=== PATIENT | female | born 2000 | race Caucasian/White ===

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

== ENCOUNTER 2021-09-06 19:14 | Emergency (ER) | payer OTHER, SELFPAY ==
[2021-09-06 19:17] VITALS: BP 115/72; PULSE 74; RESP 18; TEMP 37; O2SAT 100; BMI 20.1
[2021-09-06 20:19] LABS: Urine Appearance Hazy (CLEAR); Urine Color Yellow (Yellow)
[2021-09-06 20:20] LABS: Bilirubin Urine 1+ (Negative); Blood Urine Neg (Negative); Glucose Urine UA Norm (Normal); Ketones Urine Negative (Negative); Nitrate Urine Negative (Negative); Protein Urine Trace (Negative); Specific Gravity, Urine 1.015 (1.005-1.030); Urobilinogen Urine 1 mg/dL (Negative); pH Urine 6.5 (5-7)
[2021-09-06 20:21] LABS: Add Urine Culture? Yes; Add Urine Microscopic? YES; Bacteria Urine 2+ /hpf; Leukocyte Esterase Urine Negative (Negative); Mucus Urine 2+ /hpf; RBC Urine 0-4 /hpf (0-2)
== END 2021-09-06 20:22 | disposition left against medical advice (07) ==
LOC: ER 19:23
PROVIDERS: Emergency Medicine; PCP Family Medicine
DX: Z53.21 Procedure and treatment not carried out due to patient leaving prior to being seen by health care provider (principal)
CPT/HCPCS: 81001; 87077; 87086; 87186

== ENCOUNTER → 2022-10-12 13:03 | Outpatient (BNVA) | payer OTHER, SELFPAY | PROVIDERS: PCP Family Medicine; Visit Provider Family Medicine | DX: R00.0 Tachycardia, unspecified (principal); R53.81 Other malaise; R53.83 Other fatigue; Z51.81 Encounter for therapeutic drug level monitoring | CPT/HCPCS: 85025; 85379 ==

== ENCOUNTER → 2022-10-30 15:28 | Outpatient (BNVA) | payer OTHER, SELFPAY | PROVIDERS: PCP Family Medicine; Visit Provider Family Medicine | DX: Z51.81 Encounter for therapeutic drug level monitoring (principal); R00.0 Tachycardia, unspecified; R53.81 Other malaise; R53.83 Other fatigue | CPT/HCPCS: 80053; 84439; 84443; 86141 ==

== ENCOUNTER → 2022-11-14 11:58 | Outpatient (BNVA) | payer OTHER, SELFPAY | PROVIDERS: PCP Family Medicine; Visit Provider Family Medicine | DX: R53.81 Other malaise (principal); R53.83 Other fatigue; R74.8 Abnormal levels of other serum enzymes; L08.9 Local infection of the skin and subcutaneous tissue, unspecified; B95.62 Methicillin resistant Staphylococcus aureus infection as the cause of diseases classified elsewhere | CPT/HCPCS: 80074; 86664; 86665 ==

== ENCOUNTER → 2023-07-05 10:59 | Outpatient (BNVA) | payer OTHER, SELFPAY | PROVIDERS: PCP Family Medicine; Visit Provider Family Medicine | DX: R59.1 Generalized enlarged lymph nodes (principal); J02.9 Acute pharyngitis, unspecified; Z51.81 Encounter for therapeutic drug level monitoring; R53.81 Other malaise; R53.83 Other fatigue | CPT/HCPCS: 80053; 85025; 85651; 86141; 86664; 86665 ==

== ENCOUNTER 2023-07-27 06:39 | Outpatient (CLI) | payer OTHER, SELFPAY ==
[2023-07-27] MEDS: iohexol 350 mg/mL 500 mL Btl (per mL) IV (06:54)
--- NOTE | 2023-07-27 07:00 | CT_ITS ---
WS: [id number] CT NECK TECHNIQUE: Contrast-enhanced CT of the neck with coronal and sagittal reformatted images. CLINICAL INFORMATION: Enlarging lymph nodes COMPARISON: None. DLP: 141.[address] scans at [facility] use at least one of these dose optimization techniques: automated e xposure control; mA and/or kV adjustment per patient size (includes targeted exams where dose is matc hed to clinical indication); or iterative reconstruction. FINDINGS: Paranasal sinuses are well aerated. Mastoid air cells are well aerated. Normal posterior nasopharynx. Normal parapharyngeal fat. Small retention cyst RIGHT maxillary sinus measuring 7 mm. Lung apices are well aerated. Normal parotid glands. Normal submandibular glands. No evidence of supr aglottic or glottic mass. A few tiny low-attenuation nodules in the thyroid gland. No cervical lympha denopathy. Straightening with reversal normal cervical lordosis. IMPRESSION: 1. Normal salivary glands. 2. No evidence of supraglottic or glottic mass. 3. No cervical lymphadenopathy. Few prominent cervical lymph nodes not pathologically enlarged likel y reactive. 4. Straightening with reversal of the normal cervical lordosis. 5. A few tiny low-attenuation thyroid nodules. 6. No other suspicious findings.
== END 2023-07-27 06:40 | disposition home or self-care (01) ==
LOC: RAD 06:43
PROVIDERS: PCP Family Medicine; Visit Provider Family Medicine
DX: R59.1 Generalized enlarged lymph nodes (principal); R61 Generalized hyperhidrosis
CPT/HCPCS: 70491; Q9967

== ENCOUNTER → 2023-08-10 08:37 | Outpatient (BNVA) | payer OTHER, SELFPAY | PROVIDERS: PCP Family Medicine; Visit Provider Family Medicine | DX: E04.1 Nontoxic single thyroid nodule (principal); E03.9 Hypothyroidism, unspecified | CPT/HCPCS: 84439; 84443; 84481 ==

== ENCOUNTER → 2023-11-29 12:43 | Outpatient (BNVA) | payer OTHER, SELFPAY | PROVIDERS: PCP Family Medicine; Visit Provider Family Medicine | DX: J02.9 Acute pharyngitis, unspecified (principal) | CPT/HCPCS: 87070 ==

== ENCOUNTER → 2024-03-13 12:05 | Outpatient (BNVA) | payer OTHER, SELFPAY | PROVIDERS: PCP Family Medicine; Visit Provider Clinical Nurse Specialist Adult Health | DX: R10.84 Generalized abdominal pain (principal); R10.33 Periumbilical pain | CPT/HCPCS: 80053; 83690 ==

== ENCOUNTER 2024-03-26 07:52 | Outpatient (CLI) | payer OTHER, SELFPAY ==
--- NOTE | 2024-03-26 08:00 | NM_ITS ---
WS: [id number] NUCLEAR MEDICINE HIDA SCAN CLINICAL INFORMATION: post prandial abdominal pain TECHNIQUE: Following intravenous administration of 6.8 mCi of technetium 99m mebrofenin, images of th e abdomen were obtained over the course of 60 minutes. Next, gallbladder ejection fraction was determ ined by obtaining preprandial and one-hour postprandial images of the gallbladder following oral belinda stion of Ensure. COMPARISON: None. FINDINGS: Hepatomegaly. Enlarged RIGHT hepatic lobe. Normal hepatic uptake at 5 minutes. Normal hepatic excreti on. Gallbladder is visualized by 20 minutes. No evidence of acute cholecystitis. Normal common bile d uct and small bowel activity. Gallbladder ejection fraction 92% within normal limits. No evidence of chronic cholecystitis. NM/NM hepatobiliary w phar* [id number] IMPRESSION: 1. No evidence of acute or chronic cholecystitis. 2. Gallbladder ejection fraction 92% within normal limits. 3. Hepatomegaly.
== END 2024-03-26 07:53 | disposition home or self-care (01) ==
PROVIDERS: PCP Family Medicine; Visit Provider Clinical Nurse Specialist Adult Health
DX: R10.33 Periumbilical pain (principal); R16.0 Hepatomegaly, not elsewhere classified
CPT/HCPCS: 78227; A9537

== ENCOUNTER 2024-04-03 16:42 | Outpatient (CLI) | payer OTHER, SELFPAY ==
--- NOTE | 2024-04-03 17:00 | CTR_ITS ---
PROCEDURE INFORMATION: Exam: CT Abdomen And Pelvis With Contrast Exam date and time: 04/03/2024 5:15 PM Age: 24 years old Clinical indication: Abdominal pain; Generalized; Patient HX: Elevated liver enzymes, more frequent loose stools, bloating; Additional info: Abdominal pain, iv contrast only TECHNIQUE: Imaging protocol: Computed tomography of the abdomen and pelvis with contrast. Radiation optimization: All CT scans at this facility use at least one of these dose optimization techniques: automated exposure control; mA and/or kV adjustment per patient size (includes targeted exams where dose is matched to clinical indication); or iterative reconstruction. Contrast material: OMNI 350; Contrast volume: 100 ml; Contrast route: INTRAVENOUS (IV); COMPARISON: NM hepatobiliary w phar* [id number] 03/26/2024 8:00 AM RADIATION DOSE METRICS: Total DLP (mGy-cm): 316.5 FINDINGS: Liver: The liver is enlarged. No focal liver masses are seen. 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 No calcified stones. No ductal dilation. Pancreas: Normal. No ductal dilation. Spleen: Normal. No splenomegaly. Adrenal glands: Normal. No mass. Kidneys and ureters: Normal. No hydronephrosis. Stomach and bowel: Unremarkable. No obstruction. No mucosal thickening. Appendix: No evidence of appendicitis. Intraperitoneal space: Unremarkable. No free air. No significant fluid collection. Vasculature: See Liver finding. Lymph nodes: Unremarkable. No enlarged lymph nodes. Urinary bladder: Unremarkable as visualized. Reproductive: There is an heterogeneous area of decreased attenuation involving the anterior uterine myometrium which measures 2.5 cm. Bones/joints: Unremarkable. No acute fracture. Soft tissues: Unremarkable. CT/CT abdomen pelvis w con* [id number] IMPRESSION: 1. No acute abnormality 2. Heterogeneous lesion within the anterior uterine myometrium. This could reflect a uterine fibroid however other etiologies including scar are not excluded. Follow-up nonemergent pelvic ultrasound could be obtained for further evaluation. 3. 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
[2024-04-03] MEDS: iohexol 350 mg/mL 500 mL Btl (per mL) IV (17:28)
== END 2024-04-03 16:43 | disposition home or self-care (01) ==
LOC: RAD 16:43
PROVIDERS: PCP Family Medicine; Visit Provider Clinical Nurse Specialist Adult Health
DX: R10.9 Unspecified abdominal pain (principal); R16.0 Hepatomegaly, not elsewhere classified; N85.8 Other specified noninflammatory disorders of uterus
CPT/HCPCS: 74177; Q9967

== ENCOUNTER → 2024-04-29 11:32 | Outpatient (BNVA) | payer OTHER, SELFPAY | PROVIDERS: PCP Family Medicine; Visit Provider Clinical Nurse Specialist Adult Health | DX: R30.0 Dysuria (principal); R35.0 Frequency of micturition; R03.0 Elevated blood-pressure reading, without diagnosis of hypertension | CPT/HCPCS: 81000; 87086 ==

== ENCOUNTER → 2025-08-17 09:58 | Outpatient (BNVA) | payer OTHER, SELFPAY | PROVIDERS: PCP Family Medicine; Visit Provider Family Medicine | DX: Z51.81 Encounter for therapeutic drug level monitoring (principal); Z00.00 Encounter for general adult medical examination without abnormal findings; R59.1 Generalized enlarged lymph nodes; E04.1 Nontoxic single thyroid nodule; R53.81 Other malaise; R53.83 Other fatigue | CPT/HCPCS: 80053; 83540; 84439; 84443; 84481; 85025; 86140; 86376 ==

== ENCOUNTER 2025-09-04 07:17 | Outpatient (CLI) | payer OTHER, SELFPAY ==
--- NOTE | 2025-09-04 07:30 | USR_ITS ---
PROCEDURE INFORMATION: Exam: US Soft Tissue Head and Neck, Thyroid Exam date and time: 09/04/2025 7:30 AM Age: 25 years old Clinical indication: Abnormal findings; Abnormal radiologic study of neck; Additional info: Thyroid nodule seen on CT TECHNIQUE: Imaging protocol: Real-time ultrasound scan of the neck with image documentation. Exam focused on the thyroid. COMPARISON: US soft tissue head neck [id number] 11/24/2019 10:58 AM FINDINGS: Right thyroid lobe: Right thyroid lobe measures 3.8 x 1.2 x 1.1 cm. Left thyroid lobe: Left thyroid lobe measures 4.0 x 0.9 x 1.4 cm. 0.4 x 0.3 x 0.6 cm cystic nodule in the left thyroid lobe upper pole is solid wider than tall with smooth margins and a punctate echogenic focus. This is a TI-RADS 3 lesion and is mildly suspicious. No follow-up is needed of this tiny lesion. There is a 2nd area in the left thyroid lobe measuring 0.3 x 0.4 x 0.6 cm representing a colloid cyst. This is a TI-RADS 3 lesion and is mildly suspicious. No follow-up is needed of this benign lesion. Isthmus: No nodules. Thyroid isthmus measures 0.2 cm. US/US thyroid [id number] IMPRESSION: Small cystic lesions in the left thyroid lobe measuring up to 0.6 cm , the highest TI-RADS category is 3 and mildly suspicious. No follow-up is needed of these tiny lesions.
== END 2025-09-04 07:18 | disposition home or self-care (01) ==
LOC: RAD 07:19
PROVIDERS: PCP Family Medicine; Visit Provider Family Medicine
DX: E04.2 Nontoxic multinodular goiter (principal); R59.0 Localized enlarged lymph nodes
CPT/HCPCS: 76536